=== PATIENT | male | born 1935 | race Two or more races ===

== ENCOUNTER 2022-08-21 10:20 | Inpatient (IN) | payer MEDICARE, OTHER ==
[~2022-08-21] VITALS: Ht 177.8 cm; Wt 93.4 kg
--- NOTE | 2022-08-21 10:30 | NUR ---
accucheck 315
--- NOTE | 2022-08-21 10:45 | NUR ---
IV ESTABLISHED. 18G RAC
[2022-08-21] MEDS ORDERED: ONDANSETRON HCL/PF 4 MG/2 ML VIAL ONE (10:47)
[2022-08-21] MEDS ORDERED: MORPHINE SULFATE INJ 4 MG/ML DISP.SYRIN ONE (10:47)
--- NOTE | 2022-08-21 10:58 | NUR ---
PATIENT TAKEN TO CT VIA [facility]
[2022-08-21 10:59] LABS: BASOPHILS % (AUTO) 0.4 % (0.0-2.0); EOSINOPHILS % (AUTO) 0.1 % (0.0-6.0); HEMATOCRIT 36 % (39-51); HEMOGLOBIN 11.4 g/dL (13.5-17.5); LYMPHOCYTES % (AUTO) 9.5 % (20.0-44.0); MEAN CORPUSCULAR HGB CONC 31 g/dl (31.0-36.0); MEAN CORPUSCULAR VOLUME 88 fL (80-96); MONOCYTES # (AUTO) 0.5 K/uL (0.1-1.30); MONOCYTES % (AUTO) 4.5 % (2.0-12.0); NEUTROPHILS % (AUTO) 85.5 % (43.0-81.0); PLATELET COUNT (AUTO) 342 K/uL (150-450); RED BLOOD CELL COUNT(AUTO) 4.12 MIL/uL (4.5-6.0); WHITE BLOOD COUNT (AUTO) 10.5 K/uL (4.3-11.0)
[2022-08-21] MEDS ORDERED: IV NS 0.9% 1,000 ML BAG IV ONE (11:00)
[2022-08-21] MEDS ORDERED: ONDANSETRON HCL/PF 4 MG/2 ML VIAL IVP ONE (11:00)
[2022-08-21] MEDS ORDERED: MORPHINE SULFATE INJ 2 MG/ML DISP.SYRIN IV ONE (11:00)
[2022-08-21 11:36] LABS: ALANINE AMINOTRANSFERASE 24 U/L (12-78); ALBUMIN 3.8 g/dL (3.4-5.0); ALKALINE PHOSPHATASE 114 U/L (46-116); ASPARTATE AMINOTRANSFERASE 11 U/L (15-37); BILIRUBIN,DIRECT 0.1 mg/dL (0.0-0.2); BILIRUBIN,TOTAL 0.3 mg/dL (0.2-1.0); CALCIUM, SERUM 9.5 mg/dL (8.5-10.1); CARBON DIOXIDE 17 mmol/L (21-32); CHLORIDE 101 mmol/L (98-107); CREATININE 3.1 mg/dL (0.6-1.3); LIPASE 55 U/L (73-393); SODIUM SERUM 128 mmol/L (136-145); TOTAL PROTEIN, SERUM 7.1 g/dL (6.4-8.2); UREA NITROGEN, BLOOD 43 mg/dL (7-18)
[2022-08-21 11:39] LABS: POTASSIUM 7.1 mmol/L (3.5-5.1)
[2022-08-21 11:40] LABS: GLUCOSE 367 mg/dL (74-106)
--- NOTE | 2022-08-21 11:43 | NUR ---
URINE COLLECTED AND SENT TO LAB
[2022-08-21] MEDS ORDERED: FUROSEMIDE 20 MG/2 ML VIAL ONE (11:57)
[2022-08-21] MEDS ORDERED: INSULIN REGULAR, HUMAN 100 UNIT/ML 10 ML VIAL ONE (11:58)
[2022-08-21] MEDS ORDERED: SODIUM BICARBONATE SYR 50 MEQ/50 ML DISP.SYRIN ONE (11:58)
[2022-08-21] MEDS ORDERED: CALCIUM CHLORIDE 1,000 MG/10 ML DISP.SYRIN ONE (11:58)
[2022-08-21 11:59] LABS: BILIRUBIN,URINE NEGATIVE (NEGATIVE); COLOR,URINE YELLOW (YELLOW); LEUKOCYTE ESTERASE ,URINE NEGATIVE (NEGATIVE); NITRITE, URINE NEGATIVE (NEGATIVE); PH,URINE 5.5 (5.0-8.0); PROTEIN,URINE TRACE mg/dl (NEGATIVE); UGLUCOSE 3+ mg/dL (NEGATIVE); UROBILINOGEN,URINE 0.2 EU/dL (0.2)
[2022-08-21] MEDS ORDERED: SODIUM BICARBONATE SYR 50 MEQ/50 ML DISP.SYRIN IV ONE (12:00)
[2022-08-21] MEDS ORDERED: ALBUTEROL FS 2.5 MG/3 ML VIAL.NEB NEB ONE (12:00)
[2022-08-21] MEDS ORDERED: FUROSEMIDE 40 MG/4 ML VIAL IV ONE (12:00)
[2022-08-21] MEDS ORDERED: INSULIN REGULAR, HUMAN 100 UNIT/ML 10 ML VIAL IV ONE (12:00)
[2022-08-21] MEDS ORDERED: CALCIUM CHLORIDE 1,000 MG/10 ML DISP.SYRIN IV ONE (12:00)
[2022-08-21 12:02] LABS: BACTERIA,URINE Few /HPF (None Seen); SQUAMOUS EPITHELIAL CELL,UR Few /HPF (None Seen); WBC,URINE 0-2 /HPF (0-3)
--- NOTE | 2022-08-21 12:06 | NUR ---
MOVE SHEET SUBMITTED.
--- NOTE | 2022-08-21 12:13 | NUR ---
COVID SWAB OBTAINED
[2022-08-21] MEDS ORDERED: MAG HYDROX/AL HYDROX/SIMETH 30 ML UDC PO PRN (12:30)
[2022-08-21] MEDS ORDERED: Z GUARD REMEDY 4 OZ OINT TP PRN (12:30)
[2022-08-21] MEDS ORDERED: MAGNESIUM HYDROXIDE 30 ML UDC PO PRN (12:30)
[2022-08-21] MEDS ORDERED: ONDANSETRON HCL/PF 4 MG/2 ML VIAL IVP PRN (12:30)
[2022-08-21] MEDS ORDERED: ACETAMINOPHEN 325 MG TABLET PO PRN (12:30)
[2022-08-21] MEDS ORDERED: DEXTROSE 50%-WATER 50 ML DISP.SYRIN IV PRN (12:30)
[2022-08-21] MEDS ORDERED: ZOLPIDEM TARTRATE 5 MG TABLET PO PRN (12:30)
[2022-08-21] MEDS ORDERED: METOPROLOL TARTRATE INJ 5 MG/5 ML AMPUL ONE (12:43)
[2022-08-21] MEDS ORDERED: HYDROMORPHONE INJ 2 MG/ML DISP.SYRIN ONE (12:44)
[2022-08-21] MEDS: HYDROMORPHONE INJ 2 MG/ML DISP.SYRIN IV PRN (12:45)
[2022-08-21] MEDS ORDERED: METOPROLOL TARTRATE INJ 5 MG/5 ML AMPUL IVP ONE (13:00)
--- NOTE | 2022-08-21 13:06 | NUR ---
NIEVES VILLA DAUGHTER [phone]
[2022-08-21 13:59] LABS: CALCIUM, SERUM 9.7 mg/dL (8.5-10.1); CARBON DIOXIDE 22 mmol/L (21-32); CHLORIDE 104 mmol/L (98-107); CREATININE 3.1 mg/dL (0.6-1.3); GLUCOSE 250 mg/dL (74-106); POTASSIUM 5.5 mmol/L (3.5-5.1); SODIUM SERUM 135 mmol/L (136-145); UREA NITROGEN, BLOOD 41 mg/dL (7-18)
[2022-08-21] MEDS ORDERED: ALBUTEROL FS 2.5 MG/3 ML VIAL.NEB ONE (14:52)
--- NOTE | 2022-08-21 15:45 | NUR ---
room 115-1
--- NOTE | 2022-08-21 15:59 | NUR ---
report given to soco for continuation of care
[2022-08-21 16:30] VITALS: BP 138/79
--- NOTE | 2022-08-21 17:33 | NUR ---
PATIENT TRANSFERED TO 115-1, ALL CARE ENDORSED TO RN ARTURO
--- NOTE | 2022-08-21 17:35 | NUR ---
PATIENT RECEIVED FROM ER. PATIENT IN STABLE CONDITION. ALERT AND ORIENTED X3-4. ON ROOM AIR. IV ACCESS AT RAC 18G. Addendum: 08/21/22 at 1750 by ARTURO MENDOZA RN PRADHAN CATHETER IN PLACE DRAINING YELLOW URINE.
[2022-08-21] MEDS: BLOOD SUGAR DIAGNOSTIC 1 EACH STRIP VI SCH ×2 (18:32→22:51)
[2022-08-21] MEDS: IV NS 0.9% 1,000 ML IV PRN (18:32)
[2022-08-21] MEDS: *INSULIN REGULAR(HUMULIN R)HUM 100 UNIT/ML VIAL SQ PRN ×2 (18:34→22:50)
--- NOTE | 2022-08-21 19:56 | NUR ---
CUSTOMER CARE ASSISTANT CLOSING NOTE PATIENT IN BED WATCHING TV WITH SON AT BEDSIDE. ALERT AND ORIENTED X3-4. ON ROOM AIR SATING AT 98% WITH NO S/S OF SOB OR RESPIRATORY DISTRESS. BREATHING EVEN AND UNLABORED. ON TELE MONITOR READING SINUS RHYTHM. PRADHAN CATHETER IN PLACE DRAINING DARK YELLOW URINE. SAFETY MEASURES IN PLACE WITH BED IN LOWEST LOCKED POSITION, SIDE RAILS UP X3, CALL LIGHT AND TABLE WITHIN REACH. WILL ENDORSE TO ONCOMING SHIFT FOR SHELBY.
[2022-08-21 20:00] VITALS: BP 143/68
--- NOTE | 2022-08-21 20:00 | NUR ---
RAKESH RN OPENING NOTES RECEIVED PATIENT IN BED WITH SON AT BEDSIDE. ALERT AND ORIENTED X3-4. V/S STABLE AFEBRILE.ON ROOM AIR SATING AT 98% WITH NO S/S OF SOB OR RESPIRATORY DISTRESS. BREATHING EVEN AND UNLABORED. ON TELE MONITOR READING SINUS RHYTHM. PRADHAN CATHETER IN PLACE DRAINING YELLOW URINE. SAFETY MEASURES IN PLACE WITH BED IN LOWEST LOCKED POSITION, SIDE RAILS UP X3, CALL LIGHT AND TABLE WITHIN REACH. WILL CONTINUE TO MONITOR PTS..
--- NOTE | 2022-08-21 20:15 | NUR ---
RAKESH RN NOTES RECEIVED A CALL FROM DR FINN (SON ) REQUESTING PTS TO BE TRANSFER TO [facility] , WE EXPLAIN TO HIM THAT WE HAVE TO DO TRANSFER PROCESS SINCE GLOBAL PROGRAM MANAGER ARE NOT HERE ANYMORE , CHARGE NURSE XANDER MADE INFORM AND SO WITH DR PRINCE .CHARHED NURSE XANDER SPOKE TO THE SON AT BEDSIDE AND ALSO WITH DR FINN .ALSO RECEIVED A CALL FROM [facility] C/O MINAT ASKING US TO FAX THE FACESHEET AND ALL CLINICAL PAPER WORKS.AT THIS TIME ,PER MINAT NO BED AVAILABLE YET.
--- NOTE | 2022-08-21 20:30 | NUR ---
2030 [address]oke with patient's son Dr. Herrera and he requested for patient to be transferred to [facility] and that Dr. Bryan Dash is the accepting doctor. Explained to him that we have to go through transfer process and to find out through [facility] transfer center if they have a bed available for patient and we will update him.
--- NOTE | 2022-08-21 20:55 | NUR ---
2054 Received a call from [facility] with request to fax clinicals and face sheet, c/o Minat.
--- NOTE | 2022-08-21 21:00 | NUR ---
2100 Minelias from [facility] transfer center called and informed us that [facility] is at full capacity at the moment, she also said Dr. Dash told her patient not stable for transfer due to high K+. Placed a call to patient's son Dr. Herrera and updated him on current transfer process via voicemail.
--- NOTE | 2022-08-21 22:55 | NUR ---
telecom assistant notes Blood sugar at 10pm is 167mg/dl. 3 units of regular insulin given per sliding scale
[2022-08-22] VITALS: BP 123/66
[2022-08-22 04:00] VITALS: BP 138/68
[2022-08-22] MEDS: IV NS 0.9% 1,000 ML IV PRN (06:06)
[2022-08-22 06:21] LABS: BASOPHILS % (AUTO) 0.6 % (0.0-2.0); EOSINOPHILS % (AUTO) 1.1 % (0.0-6.0); HEMATOCRIT 30 % (39-51); HEMOGLOBIN 9.9 g/dL (13.5-17.5); LYMPHOCYTES # (AUTO) 1.3 K/uL (0.8-4.8); LYMPHOCYTES % (AUTO) 14.5 % (20.0-44.0); MEAN CORPUSCULAR HGB CONC 33 g/dl (31.0-36.0); MEAN CORPUSCULAR VOLUME 86 fL (80-96); MONOCYTES % (AUTO) 11.6 % (2.0-12.0); NEUTROPHILS # (AUTO) 6.3 K/uL (1.8-8.9); NEUTROPHILS % (AUTO) 72.2 % (43.0-81.0); PLATELET COUNT (AUTO) 296 K/uL (150-450); RED BLOOD CELL COUNT(AUTO) 3.51 MIL/uL (4.5-6.0); WHITE BLOOD COUNT (AUTO) 8.8 K/uL (4.3-11.0)
[2022-08-22] MEDS: HYDROMORPHONE INJ 2 MG/ML DISP.SYRIN IV PRN (06:24)
--- NOTE | 2022-08-22 06:54 | NUR ---
saran rn notes Pts remain in bed awake alert x3 on r/a sating 98% no sob no distress noted on ivf ns at 100cc/hr infusing well .c/o abdominal pain , due pain meds given as ordered , will endorse to rn day shift for continuity of care
[2022-08-22 06:55] LABS: CALCIUM, SERUM 8.7 mg/dL (8.5-10.1); CARBON DIOXIDE 20 mmol/L (21-32); CHLORIDE 105 mmol/L (98-107); CREATININE 3.5 mg/dL (0.6-1.3); GLUCOSE 167 mg/dL (74-106); MAGNESIUM 1.8 mg/dL (1.8-2.4); PHOSPHORUS 4.6 mg/dL (2.5-4.9); SODIUM SERUM 135 mmol/L (136-145); UREA NITROGEN, BLOOD 42 mg/dL (7-18)
--- NOTE | 2022-08-22 07:00 | NUR ---
RN NOTE RECEIVED PATIENT IN BED RESTING ALERT ORIENTED X4 VERBALLY RESPONSIVE ON ROOM AIR O2;96% IV HYDRATION NS 100CC/HR RUNNING,PRADHAN CATH IN PLACE URINE DRAINING BY GRAVITY,SAFETY MEASURE IMPLEMENT BED IN LOW POSITION AND LOCKED HEAD OF THE BED ELEVATED CALL LIGHT WITHIN REACH CONTINUE TO MONITOR.
[2022-08-22] MEDS: BLOOD SUGAR DIAGNOSTIC 1 EACH STRIP VI SCH ×2 (07:29→11:44)
[2022-08-22 07:39] LABS: POTASSIUM 6.2 mmol/L (3.5-5.1)
[2022-08-22 08:00] VITALS: BP 137/65
[2022-08-22] MEDS ORDERED: CEFTRIAXONE 1 G in IV D5W 50 ML IV ONE (08:00)
[2022-08-22] MEDS ORDERED: TAMSULOSIN 0.4 MG CAP.SR.24H PO SCH (09:00)
[2022-08-22] MEDS: KETOROLAC TROMETHAMINE INJ 30 MG/ML VIAL IV SCH ×2 (09:28→16:10)
[2022-08-22] MEDS: INSULIN REGULAR, HUMAN 100 UNIT/ML 3 ML VIAL SQ PRN ×2 (09:31→12:16)
[2022-08-22] MEDS ORDERED: CALCIUM CHLORIDE 1,000 MG/10 ML DISP.SYRIN IV ONE (10:00)
[2022-08-22] MEDS ORDERED: INSULIN REGULAR, HUMAN 100 UNIT/ML 10 ML VIAL IV ONE (10:00)
[2022-08-22] MEDS ORDERED: FUROSEMIDE 40 MG/4 ML VIAL IV ONE (10:00)
[2022-08-22] MEDS ORDERED: DEXTROSE 50%-WATER 50 ML DISP.SYRIN IV ONE (10:00)
[2022-08-22] MEDS ORDERED: SODIUM BICARBONATE SYR 50 MEQ/50 ML DISP.SYRIN IV ONE (10:00)
[2022-08-22] MEDS ORDERED: IV NS 0.9% 1,000 ML IV PRN (11:27)
[2022-08-22 12:00] VITALS: BP 115/57
[2022-08-22] MEDS ORDERED: SODIUM POLYSTYRENE SULF. PWD 15 GM UDC PO ONE (12:00)
[2022-08-22 12:39] LABS: THYROID STIMULATING HORMONE 1.295 uIU/mL (0.358-3.74)
[2022-08-22 13:02] LABS: PHOSPHORUS 4.6 mg/dL (2.5-4.9)
[2022-08-22] MEDS ORDERED: TAMS-12 PO (13:04)
[2022-08-22] MEDS ORDERED: SEMA1PEN SQ (13:04)
[2022-08-22] MEDS ORDERED: SULF1TAB48 PO (13:04)
[2022-08-22] MEDS ORDERED: CARV12.52 PO (13:04)
[2022-08-22] MEDS ORDERED: PANT40TA49 PO (13:04)
[2022-08-22] MEDS ORDERED: BUPR-54 PO (13:04)
[2022-08-22] MEDS ORDERED: INSU3INS10 SQ (13:04)
[2022-08-22] MEDS ORDERED: ATOR10TA PO (13:04)
[2022-08-22] MEDS ORDERED: SITA1TAB2 PO (13:04)
[2022-08-22] MEDS ORDERED: CLOP75TA15 PO (13:04)
[2022-08-22] MEDS ORDERED: LISI40TA13 PO (13:04)
[2022-08-22] MEDS ORDERED: AMIO100T4 PO (13:04)
[2022-08-22] MEDS ORDERED: FINA5TAB11 PO (13:04)
[2022-08-22] MEDS ORDERED: MULT1TAB70 PO (13:04)
[2022-08-22 13:39] LABS: CALCIUM, SERUM 9.3 mg/dL (8.5-10.1); CARBON DIOXIDE 21 mmol/L (21-32); CHLORIDE 108 mmol/L (98-107); GLUCOSE 104 mg/dL (74-106); POTASSIUM 5.2 mmol/L (3.5-5.1); SODIUM SERUM 138 mmol/L (136-145); UREA NITROGEN, BLOOD 44 mg/dL (7-18)
[2022-08-22] MEDS ORDERED: IV NS 0.9% 500 ML IV ONE (14:00)
[2022-08-22] MEDS ORDERED: DEXTROSE 50%-WATER 50 ML DISP.SYRIN IV PRN (14:00)
[2022-08-22] MEDS ORDERED: INSULIN REGULAR, HUMAN 100 UNIT/ML 3 ML VIAL SQ PRN (14:00)
[2022-08-22 16:00] VITALS: BP 131/62
[2022-08-22 16:22] LABS: CALCIUM, SERUM 9.1 mg/dL (8.5-10.1); CARBON DIOXIDE 21 mmol/L (21-32); CHLORIDE 109 mmol/L (98-107); POTASSIUM 5.7 mmol/L (3.5-5.1); SODIUM SERUM 137 mmol/L (136-145); UREA NITROGEN, BLOOD 45 mg/dL (7-18)
[2022-08-22 16:26] LABS: GLUCOSE 50 mg/dL (74-106)
--- NOTE | 2022-08-22 16:30 | NUR ---
lab called in stated that glucose 50 rebecca stick blood sugar was 48 Estee [employer] clerk notified and d 50 % 1amp ivp as ordered
[2022-08-22] MEDS ORDERED: SODIUM POLYSTYRENE SULFONATE 15 G/60 ML BOTTLE PO ONE (17:00)
[2022-08-22] MEDS ORDERED: BLOOD SUGAR DIAGNOSTIC 1 EACH STRIP IN SCH (17:30)
--- NOTE | 2022-08-22 18:00 | NUR ---
RN NOTE REPORT GIVEN TO GIORGIO AYERS AT [facility],
--- NOTE | 2022-08-22 19:06 | NUR ---
TECHNICAL PUBLICATIONS MANAGER NOTE PATIENT DISCHARGE TO [facility] WITH [facility],ALERT ORIENTED X4 VERBALLY RESPONSIVE ON ROOM AIR O2:98% NO SOB NOT ACUTE DISTRESS,NOTED PATIENT SIGNED ALL DISCHARGE PAPERS AND BELONGINGS,PATIENT LEFT HOSPITAL IN STABLE CONDITION.
[2022-08-23] MEDS ORDERED: PANTOPRAZOLE 40 MG TABLET.DR PO SCH (07:30)
[2022-08-23] MEDS ORDERED: TAMSULOSIN 0.4 MG CAP.SR.24H PO SCH (09:00)
[2022-08-23] MEDS ORDERED: MULTIVITAMINS,THERAGRAN 1 UDTAB TABLET PO SCH (09:00)
[2022-08-23] MEDS ORDERED: AMIODARONE HCL 200 MG TABLET PO SCH (09:00)
[2022-08-23] MEDS ORDERED: BUPROPION XL 150 MG TAB.ER.24 PO SCH (09:00)
[2022-08-23] MEDS ORDERED: ATORVASTATIN 10 MG TABLET PO SCH (09:00)
[2022-08-23] MEDS ORDERED: FINASTERIDE (5 MG) 5 MG TABLET PO SCH (09:00)
== END 2022-08-22 19:08 | disposition short-term general hospital (02) | DRG 694 ==
LOC: ER 10:22 → TELE1 15:49 → TELE-TD 16:08
PROVIDERS: ADMIT Nurse Practitioner Acute Care; ATTEND Nurse Practitioner Acute Care
DX: N13.2 Hydronephrosis with renal and ureteral calculous obstruction (principal); E11.52 Type 2 diabetes mellitus with diabetic peripheral angiopathy with gangrene; E87.1 Hypo-osmolality and hyponatremia; M48.56XA Collapsed vertebra, not elsewhere classified, lumbar region, initial encounter for fracture; E87.20 Acidosis, unspecified; N17.0 Acute kidney failure with tubular necrosis; N13.1 Hydronephrosis with ureteral stricture, not elsewhere classified; I16.0 Hypertensive urgency; I10 Essential (primary) hypertension; N32.89 Other specified disorders of bladder; N40.0 Benign prostatic hyperplasia without lower urinary tract symptoms; Z20.822 Contact with and (suspected) exposure to COVID-19; E11.65 Type 2 diabetes mellitus with hyperglycemia; K21.9 Gastro-esophageal reflux disease without esophagitis; N28.1 Cyst of kidney, acquired; Z68.32 Body mass index [BMI] 32.0-32.9, adult; E66.9 Obesity, unspecified; E78.5 Hyperlipidemia, unspecified; K57.30 Diverticulosis of large intestine without perforation or abscess without bleeding; Z91.148 Patient's other noncompliance with medication regimen for other reason; E87.5 Hyperkalemia
CPT/HCPCS: 36415; 71045-TC; 76770-TC; 80048-TC; 80076-TC; 81001; 82962-TC; 83540-TC; 83605-TC; 83690-TC; 83735-TC; 83880; 84100-TC; 84443-TC; 84484-TC; 85025-TC; 87040-TC; 87081-TC; A4223; C9803; G0378; J0696; J1170; J1815; J1885; J1940; J2270; J2405; J3490; J7030; J7040; J7060